=== PATIENT | female | born 1995 | race Caucasian/White ===

== ENCOUNTER 2025-01-07 00:14 | Inpatient (IN) | payer OTHER, SELFPAY ==
[2025-01-07 00:50] VITALS: BP 128/77; BMI 24.3
[2025-01-07] MEDS: LR 1000 IV (01:31)
[2025-01-07] MEDS: PENICILLIN 110 UNITS IV (01:53)
[2025-01-07 02:05] LABS: % Basophils 0.3 % (0-2); % Eosinophils 1.2 % (0-6); % Immature Granulocytes 0.8 % (0-0.5); % Lymphocytes 25.8 % (20.5-51.1); % Monocytes 9.8 % (1.7-9.3); % Neutrophils 62.1 % (42.2-75.2); Absolute Eosinophils 0.1 10^3/uL (0-0.7); Absolute Immature Granulocytes 0.1 10^3/uL (0-0.05); Absolute Lymphocytes 2.4 10^3/uL (1.2-3.4); Absolute Monocytes 0.9 10^3/uL (0.1-0.6); Absolute Neutrophils 5.8 10^3/uL (1.4-6.5); Hematocrit 37.8 % (37.0-47.0); Hemoglobin 13.2 g/dL (12.0-16.0); Mean Corp Hgb Conc. 34.9 g/dL (33.0-37.0); Mean Corpuscular Hgb 31.8 pg (27.0-31.0); Mean Corpuscular Volume 91.1 fL (81.0-99.0); Mean Platelet Volume 9.4 fL (7.4-10.4); Nucleated Red Blood Cells % 0 %; Platelet Count 174 10^3/uL (130-400); Red Blood Cell Count 4.15 10^6/uL (4.20-5.40); Red Cell Dist. Width 13.6 % (11.5-14.5); White Blood Cell Count 9.3 10^3/uL (4.8-10.8)
[2025-01-07] MEDS: PENICILLIN 55 UNITS IV ×2 (05:09→09:10)
[2025-01-07] MEDS: FENTANYL/BUPIVACAINE 100 EPIDURAL (05:27)
[2025-01-07] MEDS: SUBLIMAZE 100 MCG EPIDURAL (05:27)
[2025-01-07] MEDS: PITOCIN 30 UNITS/NSS 500 ML IV ×2 (05:51→09:57)
[2025-01-07] MEDS: MOTRIN 600 MG PO ×3 (12:17→23:45)
[2025-01-07] MEDS: TYLENOL 650 MG PO ×2 (16:01→20:08)
--- NOTE | 2025-01-08 02:48 | DOWNTIME ---
There was a [employer] Downtime on 01/08/2025 from 0100 to 01/08/2024 at 0235 . Downtime documentation of patient's care, including medication administrations, has been reconciled in the electronic record per guidelines. Refer to the
patient's paper chart under the miscellaneous tab to see printed paper medication records and downtime forms.
[2025-01-08] MEDS: SYNTHROID 12.5 MCG PO (05:51)
[2025-01-08] MEDS: MOTRIN 600 MG PO (06:29)
[2025-01-08 06:55] LABS: Hematocrit 30.2 % (37.0-47.0); Hemoglobin 10.5 g/dL (12.0-16.0)
[2025-01-08] MEDS: ZINC 50 MG PO (08:47)
[2025-01-08] MEDS: SENOKOT-S 1 TABLET PO (08:48)
== END 2025-01-08 12:39 | disposition home or self-care (01) | DRG 807 ==
LOC: LDRP 00:14
PROVIDERS: ADMITTING PHYSICIAN Obstetrics & Gynecology; ATTENDING PHYSICIAN Student in an Organized Health Care Education/Training Program
PROC: 4A1HXCZ Monitoring of Products of Conception, Cardiac Rate, External Approach (ICD-10-PCS; 2025-01-07)
PROC: 0UQG7ZZ Repair Vagina, Via Natural or Artificial Opening (ICD-10-PCS; 2025-01-07)
PROC: 10E0XZZ Delivery of Products of Conception, External Approach (ICD-10-PCS; 2025-01-07)
PROC: 10907ZC Drainage of Amniotic Fluid, Therapeutic from Products of Conception, Via Natural or Artificial Opening (ICD-10-PCS; 2025-01-07)
DX: O99.284 Endocrine, nutritional and metabolic diseases complicating childbirth (principal); Z37.0 Single live birth; O99.824 Streptococcus B carrier state complicating childbirth; O69.81X0 Labor and delivery complicated by cord around neck, without compression, not applicable or unspecified; O71.4 Obstetric high vaginal laceration alone; E03.9 Hypothyroidism, unspecified; Z3A.39 39 weeks gestation of pregnancy; Z79.890 Hormone replacement therapy
CPT/HCPCS: 36415; 85014; 85018; 85025; 86780; 86850; 86900; 86901